=== PATIENT | male | born 1995 | race Caucasian/White ===

== ENCOUNTER 2022-08-22 13:33 | Outpatient (CLI) | payer BC, SELFPAY ==
[2022-08-22 10:48] LABS: Albumin* 4.5 g/dL (3.3-5.0); Chloride* 103 mmol/L (96-114); Potassium* 4.6 mmol/L (3.6-5.1); Sodium* 139 mmol/L (135-149)
[2022-08-22 10:50] LABS: Cholesterol* 147 mg/dL (90-199); Estimated Glomerular Filt Rate 104 ml/min
[2022-08-22 10:51] LABS: Alanine Aminotransferase* 19 U/L (4-50); Alkaline Phosphatase* 66 U/L (40-150); Aspartate Amino Transferase* 29 U/L (12-35); Bilirubin Total* 1.2 mg/dL (0.1-1.5); Blood Urea Nitrogen* 13 mg/dL (5-24); Calcium* 8.2 mg/dL (8.4-10.6); Carbon Dioxide* 29 mmol/L (20-32); Glucose* 82 mg/dL (60-115); Total Protein* 6.6 g/dL (6.0-8.3); Triglycerides* 67 mg/dL (40-149)
[2022-08-22 10:52] LABS: HDL Cholesterol* 61 mg/dL (>=40); LDL Cholesterol Calculated 73 mg/dL (<100)
== END 2022-08-22 13:34 | disposition home or self-care (01) ==
PROVIDERS: PCP Family Medicine; Visit Provider Family Medicine
DX: Z00.00 Encounter for general adult medical examination without abnormal findings (principal); Z13.6 Encounter for screening for cardiovascular disorders; L21.9 Seborrheic dermatitis, unspecified
CPT/HCPCS: 80053; 80061

== ENCOUNTER 2023-08-24 08:14 | Outpatient (CLI) | payer BC, SELFPAY | END 2023-08-24 08:15 | disposition home or self-care (01) | LOC: NFLDREF 08-27 13:30 | PROVIDERS: PCP Family Medicine; Referring Provider Family Medicine; Visit Provider Family Medicine | DX: Z00.00 Encounter for general adult medical examination without abnormal findings (principal); L21.9 Seborrheic dermatitis, unspecified; G43.009 Migraine without aura, not intractable, without status migrainosus; Z13.9 Encounter for screening, unspecified; E58 Dietary calcium deficiency | CPT/HCPCS: 80053; 80061 ==